=== PATIENT | female | born 1970 | race Caucasian/White ===

== ENCOUNTER 2023-06-12 09:24 | Outpatient (AMB) | payer OTHER, SELFPAY ==
--- NOTE | 2023-06-12 09:27 | A.OFFVIS_ITS ---
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 She has had these for the last few years. Previously seen by [facility] but would like to switch. It seems that she underwent a stress test in 2018. At that time, she exercised for 6 minutes and 38 seconds. 90% of peak predicted heart rate. 8.8 Mets. She had no ischemic changes. With regard to the chest pain itself, random pains. Can happen any time. At that time she holds the chest and after some time it gets better. Nothing clearly exertion. She has a chronic smoker and still smokes. Her brother who was also a smoker had a heart attack and hence there is a concern. Uncertain heart issues in her father. Otherwise, patient states she had sleep apnea but she had some throat surgery not for that apparently sleep apnea got better. She is a diabetic on metformin. Not listed to be hypertensive. On statins. [facility], [facility] Medical History (Updated 06/12/23 @ 10:37 by George Rocha MD) Dyslipidemia Smoker Type 2 diabetes mellitus with unspecified complications Family History (Updated 06/12/23 @ 09:42 by George Rocha MD) Father No problems noted. Mother No problems noted. Brother Myocardial infarction Social History (Updated 06/12/23 @ 09:31 by Jenny Monsalve) Alcohol intake: current Alcohol intake frequency: holidays/special occasions only Patient Tobacco Use Status: Current everyday Tobacco user Tobacco use type: Cigarette Cigarettes Per Day: 12 Review of Systems Const Denies weakness ENT Denies dizziness Card Denies chest pain, Denies chest pain with activity, Denies syncope, Denies rapid heart rate, Denies pedal edema, Denies edema, Denies leg edema, Denies lightheadedness, Denies palpitations, Denies dyspnea, Denies dyspnea on exertion and Denies orthopnea Resp Denies cough, Denies dyspnea and Denies dyspnea on exertion GI Denies hematochezia and Denies change in stool character Musc Denies abnormal gait, Denies muscle cramps, Denies muscle weakness, Denies numbness, Denies radiating pain into limb and Denies tingling Neuro Denies abnormal gait, Denies dizziness, Denies syncope, Denies numbness, Denies tingling and Denies weakness Endo Denies palpitations Physical Exam Vital Signs: Last Vital Signs Pulse 71 06/12/23 09:28 BP 128/80 06/12/23 09:28 BMI result Body Mass Index 37.5 Const General: comfortable and no acute distress Orientation/consciousness: patient oriented x3 HEENT Other: Unremarkable Head: Yes normal to inspection Neck Neck: Yes normal visual inspection Chest Chest palpation & inspection: normal inspection of the chest Resp Auscultation: clear to auscultation bilaterally Cardio Palpation: normal PMI Heart sounds: S1 normal heart sound present, S2 normal heart sound present, no gallops, no murmurs and no rubs GI Palpation (GI): Soft to palpation Back/Spine/Pelvis Other: unremarkable Skin General skin exam: no rashes or lesions noted Neuro General: patient oriented x3 Extrem General: Yes normal to inspection Psych Mental Status: mental status grossly normal Office Procedures EKG Details: EKG shows sinus rhythm at 71/Min; no significant ST-T changes and otherwise unremarkable[place] [id number], Complete Assessment & Plan Assessment & Plan (1) Precordial chest pain: Code(s): R07.2 - Precordial pain (2) Type 2 diabetes mellitus with unspecified complications: Code(s): E11.8 - Type 2 diabetes mellitus with unspecified complications (3) Dyslipidemia: Code(s): E78.5 - Hyperlipidemia, unspecified (4) Smoker: Code(s): F17.200 - Nicotine dependence, unspecified, uncomplicated (5) Family history of myocardial infarction in first degree male relative: Code(s): Z82.49 - Family history of ischemic heart disease and other diseases of the circulatory system Plan Atypical symptoms but multiple risk factors including smoking, dyslipidemia, diabetes, positive history of myocardial infarction her brother. We will get an echocardiogram and coronary CTA for further evaluation. Further plan based on the findings. Orders: Orders CA echo transthoracic complete Today R07.2 - Precordial pain CT Cardiac Coronary Angio Today I25.10 - Atherosclerotic heart disease of [place] coronary artery without angina pectoris Basic Metabolic Panel Today R07.2 - Precordial pain Coding Level of Care Code New Pt Level 4 (48613) Diagnoses Precordial chest pain R07.2 Type 2 diabetes mellitus with unspecified complications E11.8 Dyslipidemia E78.5 Smoker F17.200 Family history of myocardial infarction in first degree male relative Z82.49 CPT Codes EKG - CPT: 47902-[id number], Complete ([id number])
[2023-06-12 09:28] VITALS: BP 128/80; PULSE 71; BMI 37.5
== END 2023-06-12 10:20 | disposition home or self-care (01) ==
PROVIDERS: PCP Nurse Practitioner Adult Health; Referring Provider Nurse Practitioner Adult Health; Visit Provider Internal Medicine
DX: R07.2 Precordial pain (principal); E11.8 Type 2 diabetes mellitus with unspecified complications; E78.5 Hyperlipidemia, unspecified; F17.200 Nicotine dependence, unspecified, uncomplicated; Z82.49 Family history of ischemic heart disease and other diseases of the circulatory system
CPT/HCPCS: 93010; 99204

== ENCOUNTER → 2023-06-12 09:24 | Outpatient (BNVA) | payer OTHER, SELFPAY | PROVIDERS: PCP Nurse Practitioner Adult Health; Referring Provider Nurse Practitioner Adult Health; Visit Provider Internal Medicine | DX: R07.2 Precordial pain (principal); I25.10 Atherosclerotic heart disease of native coronary artery without angina pectoris; I10 Essential (primary) hypertension; E11.9 Type 2 diabetes mellitus without complications; E78.5 Hyperlipidemia, unspecified; F17.210 Nicotine dependence, cigarettes, uncomplicated; Z82.49 Family history of ischemic heart disease and other diseases of the circulatory system; Z79.4 Long term (current) use of insulin | CPT/HCPCS: 93005; 99202 ==

== ENCOUNTER 2023-07-03 09:24 | Outpatient (REF) | payer OTHER, SELFPAY ==
[2023-07-03 11:05] LABS: Anion Gap 12 (12-20); Blood Urea Nitrogen 11 mg/dL (9-16); Calcium 9.9 mg/dL (8.4-10.2); Carbon Dioxide 27 mmol/L (22-29); Chloride 104 mmol/L (96-108); Estimated Glomerular Filt Rate > 60; Glucose Random 165 mg/dL (60-115); Sodium 139 mmol/L (135-145)
== END 2023-07-03 09:25 | disposition home or self-care (01) ==
LOC: HO.LAB 09:24
PROVIDERS: Visit Provider Internal Medicine
DX: R07.2 Precordial pain (principal)
CPT/HCPCS: 36415; 80048

== ENCOUNTER → 2023-07-10 14:53 | Outpatient (REF) | payer OTHER, SELFPAY ==
--- NOTE | 2023-07-10 14:55 | CA_ITS ---
Transthoracic Echocardiogram Patient (Last, First, Middle): Randall Faustin, Gender: Female Date of : 1970 Age: 52 Procedure Date: 07/10/2023 Procedure Type: Transthoracic Echocardiogram Location: OP Height: 160.02 cm Weight: 95.26 kg BSA: 1.97 m2 Heart Rate: bpm BP: 120 / 70 mmHg Dentist Attendant: CAITLIN/JUAN Referring MD: George Rocha MD Industry Consultant: Moises Santo MD Symptoms: R07.2 - Precordial pain Study Quality: Adequate ECG Rhythm: Sinus Conclusions: - Essentially normal study Findings Left Ventricle Normal left ventricular size, thickness, and systolic function. The visually estimated ejection fraction is between 60-65%. Diastolic function is normal for age. Peak GLS is -18.9%, within normal limits. Right Ventricle Normal right ventricular cavity size and systolic function. Atria Both atria are normal in size. Interatrial shunt cannot be excluded. Aortic Valve Normal aortic valve structure and function. There is no aortic valve stenosis. There is no aortic valve regurgitation. Mitral Valve Normal mitral valve structure and function. There is trace mitral valve regurgitation. There is no mitral valve stenosis. Pulmonic Valve The pulmonic valve is likely normal. There is trace pulmonic valve regurgitation. Tricuspid Valve Normal tricuspid valve structure. Tricuspid regurgitation envelope is inadequate for calculation of right ventricular systolic pressure. Normal right atrial pressure. Great Vessels All visible segments of the aorta are normal in size. The pulmonary artery was not well visualized. Venous The inferior vena cava is normal in size and collapses greater than 50% with inspiration. Pericardium/Pleural There is no evidence of pericardial effusion. Prior Study Comparison No prior study available for comparison. Measurements 2D Linear Measurements IVSd: 0.90 0.6-0.9/0.6-1.0 cm LVIDd: 4.80 3.9-5.3/4.2-5.9 cm LVIDd Index: 2.44 2.4-3.2/2.2-3.1 cm/m2 LVIDs: 2.70 2.0-3.6 cm LVPWd: 1.00 0.7-1.1 cm LA Diam: 3.10 2.7-3.8/3.0-4.0 cm LAIDs Index: 1.57 1.5-2.3 cm/m2 LV Mass: 197.78 67-162/88-224 g LV Mass Index: 100.39 43-95/49-115 g/m2 LVOT Diam: 2.10 3.0+(-)1.3 cm 2D Systolic Function EF 4C: 62.30 >55% EF 2C: 59.80 >55% EF BiP: 59.90 >55% Mitral Valve MV Pk E: 0.86 MV PK A: 0.70 MV Decel Time: 260.00 E/A: 1.20 E'Lateral: 9.57 E'Medial: 6.53 E/E' Med: 13.20 E/E' Lat: 9.00 PHT: 76.00 MVA PHT: 2.89 Decel Mellette: 3.32 Aortic Valve AoV Pk Alexei: 1.45 AoV Mn Alexei: 0.96 AoV VTI: 0.29 AoV Pk Grad: 8.00 Aov Mn Grad: 4.00 TILA Cont.VTI: 2.69 LVOT LVOT Pk Alexei: 1.11 LVOT Mn Alexei: 0.73 LVOT VTI: 0.22 LVOT Pk Grad: 5.00 LVOT Mn Grad: 3.00 LVOT Diam: 2.10 LVOT Area: 3.46 Diastolic Function MV Pk E: 0.86 MV Pk A: 0.70 E/A: 1.20 E'Medial: 6.53 E/E' Med: 13.20 E' Laterial: 9.57 E/E' Lat: 9.00 Right Ventricle TAPSE (mm): 18.90 TVS' Alexei: 13.50 Tricuspid Valve RA Press: 8.00 Great Vessels Aorta Sinus of Valsalva: 3.30 2.0-3.[address] [place]: 2.50 1.7-3.4 cm Ao Asc: 3.40 2.1-3.4 cm Ao Arch: 2.30 Updated in Other Vendor System with Status of Final Moises Santo MD electronically signed on 07/10/2023 4:35:21 PM with status of Final
== END ==
LOC: HO.CARD 14:53
PROVIDERS: PCP Nurse Practitioner Adult Health; Visit Provider Internal Medicine
DX: R07.2 Precordial pain (principal)
CPT/HCPCS: 93306; 93356

== ENCOUNTER → 2023-07-10 14:55 | Outpatient (BNV) | payer OTHER, SELFPAY | PROVIDERS: PCP Nurse Practitioner Adult Health; Visit Provider Internal Medicine Cardiovascular Disease | DX: R07.2 Precordial pain (principal) | CPT/HCPCS: 93306 ==

== ENCOUNTER 2023-08-27 09:22 | Outpatient (AMB) | payer OTHER, SELFPAY ==
[2023-08-27 09:30] VITALS: BP 128/72; PULSE 86; BMI 38.1
--- NOTE | 2023-08-27 09:30 | A.OFFVIS_ITS ---
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 She recently underwent an echocardiogram and CTA of the coronary arteries and now presents for follow-up. Today she reports that she does still get a sharp discomfort in her mid chest that can last several minutes before letting up. This can happen randomly. Not brought on by exertion. She does have reflux symptoms as well and she has been taking omeprazole with some improvement. No shortness of breath, palpitations, presyncope, syncope, PND, orthopnea or edema. She reports being active each day and tolerates normal ADLs without difficulty. Takes her meds as directed. Continues to smoke. [facility] Medical History Smoker Dyslipidemia Type 2 diabetes mellitus with unspecified complications Family History Father No problems noted. Mother No problems noted. Brother Myocardial infarction Social History Alcohol intake: current Alcohol intake frequency: holidays/special occasions only Patient Tobacco Use Status: Current everyday Tobacco user Tobacco use type: Cigarette Cigarettes Per Day: 12 Review of Systems Const All systems reviewed & are unremarkable except as noted in HPI and below Card Reports chest pain GI Reports heartburn Physical Exam Vital Signs: Last Vital Signs Pulse 86 08/27/23 09:30 BP 128/72 08/27/23 09:30 BMI result Body Mass Index 38.1 Const General: cooperative, healthy appearing, comfortable and no acute distress Orientation/consciousness: patient oriented x3 Neck Neck: Yes normal visual inspection Resp Effort & Inspection: normal respiratory effort Auscultation: clear to auscultation bilaterally, no crackles, no rales, no rhonchi and no wheezes Cardio Jugular venous distension: no JVD Rate: regular rate Rhythm: regular rhythm Heart sounds: S1 normal heart sound present, S2 normal heart sound present, no murmurs and no rubs Neuro General: patient oriented x3 Extrem General: Yes normal to inspection, No no pedal edema and No calf tenderness Psych Appearance: grossly normal Mental Status: mental status grossly normal Speech and movement: Normal speech and movement present Assessment & Plan Assessment & Plan (1) Precordial chest pain: Code(s): R07.2 - Precordial pain Plan: Atypical sounding nonexertional chest discomfort. Sharp pain in the lower sternum occurring randomly. Exercise stress test done in 2018 with exercise 8.8 Mets, no EKG changes. She was evaluated by Dr. Rocha on last visit. An echocardiogram was done on 07/10/2023 showing normal study, EF 60-65%. A CTA of the coronary arteries was done on 07/27/2023 showing no significant CAD, small hiatal hernia and mild distal esophageal thickening which may represent esophagitis. Patient states that she has been taking omeprazole with some improvement in her GERD symptoms. She has had occasional episodes of the sharp chest discomfort in recent weeks. Review test results with her in detail. Gave her a copy of the CTA report. Recommended GI evaluation and treatment if her symptoms persist. Informed that there is no evidence her symptoms are cardiac related. She does have cardiac risk factors. Reviewed need for good blood sugar, blood pressure and cholesterol control. Signs and symptoms of angina reviewed. Cardiology follow-up as needed. (2) Esophageal thickening: Code(s): K22.89 - Other specified disease of esophagus (3) Type 2 diabetes mellitus with unspecified complications: Code(s): E11.8 - Type 2 diabetes mellitus with unspecified complications Plan: Hemoglobin A1c goal less than 7. Followed by her PCP (4) Dyslipidemia: Code(s): E78.5 - Hyperlipidemia, unspecified Plan: [place] LDL goal less than 70 in patient with diabetes. No recent lipid profile for review. She tells me labs are followed by her PCP. Continue statin therapy. (5) Smoker: Code(s): F17.200 - Nicotine dependence, unspecified, uncomplicated Plan: Benefits of smoking cessation reviewed. Coding Level of Care Code Est Pt Level 3 (77451) Diagnoses Precordial chest pain R07.2 Esophageal thickening K22.89 Type 2 diabetes mellitus with unspecified complications E11.8 Dyslipidemia E78.5 Smoker F17.200 Time Spent (min) 24
== END 2023-08-27 10:04 | disposition home or self-care (01) ==
PROVIDERS: PCP Nurse Practitioner Adult Health; Visit Provider Nurse Practitioner Family
DX: R07.2 Precordial pain (principal); K22.89 Other specified disease of esophagus; E11.8 Type 2 diabetes mellitus with unspecified complications; E78.5 Hyperlipidemia, unspecified; F17.200 Nicotine dependence, unspecified, uncomplicated
CPT/HCPCS: 99213

== ENCOUNTER → 2023-08-27 09:22 | Outpatient (BNVA) | payer OTHER, SELFPAY | PROVIDERS: PCP Nurse Practitioner Adult Health; Visit Provider Nurse Practitioner Family | DX: R07.2 Precordial pain (principal); K22.89 Other specified disease of esophagus; E78.5 Hyperlipidemia, unspecified; E11.8 Type 2 diabetes mellitus with unspecified complications; F17.210 Nicotine dependence, cigarettes, uncomplicated | CPT/HCPCS: 99212 ==

== ENCOUNTER 2023-09-05 10:48 | Outpatient (AMB) | payer OTHER, SELFPAY ==
--- NOTE | 2023-09-05 10:51 | MHC.OFFVIS ---
Intake Vital Signs 09/05/23 10:52 Height 5 ft 3 in Weight 216 lb 0.848 oz BMI 38.3 BP 144/86 H Blood Pressure Location Lt brachial Position Sitting Pulse 81 Intake Visit Reasons: Incidental finding of Esophageal thickening Intake Note: Randall presents in the office as a new patient for incidental findings of esophageal thickening. CC: She states that she gets mucus sometimes but she is surprised because she used to get acid and she takes omeprazole - she stopped for a while and she was feeling good. All of a sudden her acid reflux came back and having chest pains. Allergies No Known Allergies Allergy (Verified 09/05/23 10:55) HPI HPI Comments History of Present Illness Details 52 y.o F with PMH who was referred here for abnormal imaging finding. Pt reports that has been getting cardiac work up done through [facility] for chest pain and pressure which also included a CTA of coronary arteries performed on 07/27/23 that showed clear coronaries but did incidentally roller picker mild distal thickening of the esophagus. Pt does report baseline heartburn sx that have been ongoing on and off for 10 years. Has been treated with intermittent PPIs. Had not needed to take it for almost 6 months since was asymptomatic but when she was told about the esophagitis she resumed it at the dose of 40mg x 2 weeks and now on 20mg once daily. At present, does not report any heartburn, N,V, regurgitation. Smokes 0.5 PPD, etOH use 2-3 times a month. Occ NSAID use PRN for migraines. Up to date on colonoscopy - April 2023 ([facility]): Hyperplastic polyp. [facility] Medical History Smoker Dyslipidemia Type 2 diabetes mellitus with unspecified complications Surgical History Hx of colonoscopy Family History Father No problems noted. Mother No problems noted. Brother Myocardial infarction Social History Alcohol intake: current Alcohol intake frequency: holidays/special occasions only Patient Tobacco Use Status: Current everyday Tobacco user Tobacco use type: Cigarette Cigarettes Per Day: 12 Review of Systems Const All systems reviewed & are unremarkable except as noted in HPI and below Physical Exam Vital Signs: Last Vital Signs Pulse 81 09/05/23 10:52 BP 144/86 H 09/05/23 10:52 BMI result Body Mass Index 38.3 Gen appear: NAD HEENT: nonicteric, no cervical lymphadenopathy Chest: CTA CVS: Regular S1/S2 Abd: soft, nontender, nondistended, bowel sounds + Ext: no peripheral edema Neuro: A/Ox3, noted to move all extremities spontaneously Psych: interacting appropriately Assessment & Plan Assessment & Plan (1) Esophageal thickening: Code(s): K22.89 - Other specified disease of esophagus (2) Smoker: Code(s): F17.200 - Nicotine dependence, unspecified, uncomplicated Plan Reviewed with the pt that most likely secondary to erosive esophagitis given known hx of GERD and ongoing smoking. Will arrange for EGD to r/o infectious esophagitis, malignancy etc. Plan: - Cont omeprazole 20 PO daily - Counseling for smoking cessation - EGD to be booked in 8 weeks for eval Follow up after EGD as needed Coding Level of Care Code New Pt Level 4 (78934) Diagnoses Esophageal thickening K22.89 Smoker F17.200
[2023-09-05 10:52] VITALS: BP 144/86; PULSE 81; BMI 38.3
== END 2023-09-05 13:23 | disposition home or self-care (01) ==
PROVIDERS: PCP Nurse Practitioner Adult Health; Visit Provider Internal Medicine
DX: K22.89 Other specified disease of esophagus (principal); F17.200 Nicotine dependence, unspecified, uncomplicated
CPT/HCPCS: 99204

== ENCOUNTER → 2023-09-05 10:48 | Outpatient (BNVA) | payer OTHER, SELFPAY | PROVIDERS: PCP Nurse Practitioner Adult Health; Visit Provider Internal Medicine | DX: K22.89 Other specified disease of esophagus (principal); F17.210 Nicotine dependence, cigarettes, uncomplicated; Z79.899 Other long term (current) drug therapy | CPT/HCPCS: 99202 ==

== ENCOUNTER 2023-09-12 07:28 | Day surgery (SDC) | payer OTHER, SELFPAY ==
[2023-09-12] VITALS (7 sets, daily range): BP systolic 106–124; BP diastolic 63–78; PULSE 74–83; RESP 9–18; TEMP 36.3–36.8; O2SAT 94–96; BMI 37.7
--- NOTE | 2023-09-12 07:39 | HO.ADDICTPRO ---
Subjective Subjective Reason For Visit: Esophagitis, unspecified without bleeding Diagnostics EKG EKG: reviewed Medications Allergies Allergies Allergy/AdvReac Type Severity Reaction Status Date / Time No Known Allergies Allergy Verified 09/05/23 10:55 Assessment & Plan Total time managing care of this patient today ____ minutes.
--- NOTE | 2023-09-12 07:39 | HO.ANESPROP2 ---
[facility] Active Problems Active Problems: All Active Problems Esophageal thickening (Acute) Family history of myocardial infarction in first degree male relative (Acute) Smoker (Acute) Dyslipidemia (Acute) Type 2 diabetes mellitus with unspecified complications (Acute) Precordial chest pain (Acute) Past Medical History Medical History Smoker Dyslipidemia Type 2 diabetes mellitus with unspecified complications Functional capacity: independent ambulation Family History Family History Father No problems noted. Mother No problems noted. Brother Myocardial infarction Family history of problems with anesthesia: No Surgical History Surgical History Hx of colonoscopy History of Problems with Anesthesia: Yes Social History Social History Alcohol intake: current Alcohol intake frequency: holidays/special occasions only Patient Tobacco Use Status: Current everyday Tobacco user Tobacco use type: Cigarette Cigarettes Per Day: 12 Advance Directives: No Advance Directives Information Provided: Yes Meds Allergies Allergy/AdvReac Type Severity Reaction Status Date / Time No Known Allergies Allergy Verified 09/05/23 10:55 Home Medications Medication Instructions Recorded Confirmed Last Taken Type atorvastatin 80 mg tablet 80 mg PO DAILY 06/12/23 08/27/23 Unknown History fluticasone propionate 50 1 - 2 spray intranasal DAILY PRN 06/12/23 08/27/23 Unknown History mcg/actuation nasal spray,suspension ibuprofen 800 mg tablet 800 mg PO DAILY PRN pain 06/12/23 08/27/23 Unknown History levothyroxine 175 mcg tablet 175 mcg PO DAILY 06/12/23 08/27/23 Unknown History metformin 500 mg tablet 500 mg PO DAILY 06/12/23 08/27/23 Unknown History omeprazole 20 mg capsule,delayed 20 mg PO DAILY 06/12/23 08/27/23 Unknown History release Exam Exam Date and Time: September 12, 202339 Airway Mallampati Class: IV TM Dist: >3cm Neck ROM: Full Denture: Upper Heart: RRR Lungs: CTA Assessment and Plan Assessment Anesthesia Assessment: Anesthesia Plan Discussed Final Anesthetic Review Family History of Problems with Anesthesia: No History of Problems with Anesthesia: Yes NPO: Yes ASA Class: III Final Preanesthetic Review: Meds/Allgs Chart Reviewed, Consent Obtained/Reviewed and Anes Risks/Benef Reviewed Patient Risk: Low Procedure Risk: Low Anesthetic Plan Anesthetic Plan: MAC: Disposition: Standard PACU
[2023-09-12 08:06] LABS: Glucose, Whole Blood 126 mg/dL (60-115)
--- NOTE | 2023-09-12 08:31 | P.CONAN_ITS ---
[facility] Active Problems Active Problems: All Active Problems (Updated 07/31/23 @ 14:07 by Syl Salazar RN) Esophageal thickening (Acute) Family history of myocardial infarction in first degree male relative (Acute) Precordial chest pain (Acute) Smoker (Acute) Dyslipidemia (Acute) Type 2 diabetes mellitus with unspecified complications (Acute) Past Medical History Medical History Smoker Dyslipidemia Type 2 diabetes mellitus with unspecified complications Functional capacity: independent ambulation Family History Family History Father No problems noted. Mother No problems noted. Brother Myocardial infarction Family history of problems with anesthesia: No Surgical History Surgical History (Updated 09/12/23 @ 07:46 by Chuyita Wong RN) History of oral surgery Hx of colonoscopy History of Problems with Anesthesia: Yes Social History Social History Alcohol intake: current Alcohol intake frequency: holidays/special occasions only Patient Tobacco Use Status: Current everyday Tobacco user Tobacco use type: Cigarette Cigarette Packs Per Day: 0.5 Cigarettes Per Day: 10.0 Meds Allergies Allergy/AdvReac Type Severity Reaction Status Date / Time No Known Allergies Allergy Verified 09/05/23 10:55 Home Medications Medication Instructions Recorded Confirmed Last Taken Type atorvastatin 80 mg tablet 80 mg PO DAILY 06/12/23 09/12/23 Unknown History fluticasone propionate 50 1 - 2 spray intranasal DAILY PRN 06/12/23 09/12/23 Unknown History mcg/actuation nasal Allergic Symptoms spray,suspension ibuprofen 800 mg tablet 800 mg PO DAILY PRN pain 06/12/23 09/12/23 Unknown History levothyroxine 175 mcg tablet 175 mcg PO DAILY 06/12/23 09/12/23 Unknown History metformin 500 mg tablet 500 mg PO DAILY 06/12/23 09/12/23 Unknown History omeprazole 20 mg capsule,delayed 20 mg PO DAILY 06/12/23 09/12/23 Unknown History release Exam Exam Date and Time: September 12, 2023 0831 Height,Weight and Vital Signs: Height 5 ft 3 in Weight 96.672 kg Last Vital Signs Temp 97.3 F 09/12/23 07:52 Pulse 74 09/12/23 07:52 Resp 16 09/12/23 07:52 BP 115/74 09/12/23 07:52 Pulse Ox 94 09/12/23 07:52 O2 Del Method Room Air 09/12/23 07:52 Pertinent Lab Results Pertinent Lab Results: Laboratory Tests 09/12/23 08:02 POC Glucose 126 H Assessment and Plan Final Anesthetic Review Family History of Problems with Anesthesia: No History of Problems with Anesthesia: Yes
--- NOTE | 2023-09-12 09:28 | W.PM.OPN ---
Operative Note Operative Note Date of Service: 09/12/23 Narrative: FLEXIBLE TRANSORAL UPPER GASTROINTESTINAL ENDOSCOPY WITH BIOPSIES Pre-op diagnosis: GERD, esophageal wall thickening on chest CT scan Post-op diagnosis: GERD, resoving esophagitis, gastritis, gastric antral nodules Endoscopist:? Diamante Elmore MD Anesthesia:?MAC and converted to GA with ETT (Dr Allen) Consent: Indications for the procedure and potential complications of bleeding, perforation, reaction to medications and missed diagnosis were discussed with the patient and informed consent was obtained. Instrument: Olympus GIF H 190 mid size upper endoscope Monitoring: Vital signs and clinical assessment, continuous EKG monitoring, Pulse oximetry, Carbon Dioxide monitoring and blood pressure monitoring were done throughout the procedure. Procedure: The patient was placed in the left lateral decubitis position and pre-procedure medications were administered and a bite block was placed. The endoscope was inserted into the mouth and advanced under direct vision to the third part of duodenum. The pt became apneic (due to laryngospasm) and the endoscope was removed. Pt was bagged and then ETT was placed. The endoscope was reinserted and a careful inspection was made as the upper endoscope was withdrawn including a retroflexed examination of the proximal stomach; Findings and interventions are described below. Findings: Larynx: ETT in place Esophagus: GE junction at 35 cms. Mild LA Grade A esophagitis with a few superficial 5 mm healing erosions at the GE junction. No Arzola's. Remaining esophageal mucosa appeared normal Stomach: A few 5 to 10 mm benign appearing nodules in the antrum with central erosions - biopsied. Mild gastric erythema. Biopsies were obtained. Grade 2 flap valve on retroflexed examination of the cardia. Duodenum: Normal bulb and descending duodenum Intervention: Biopsies as noted above Impression and Post Procedure Diagnosis: Endoscopy Findings: ESOPHAGUS: Mild LA Grade A esophagitis with a few superficial 5 mm healing erosions at the GE junction. No Arzola's. Remaining esophageal mucosa appeared normal STOMACH: Mild antral gastritis and a few 5 to 10 mm benign appearing nodules in the antrum with central erosions - biopsied. DUODENUM: Normal Plan: I will contact the patient with pathology results Patient to schedule a FU appointment in the GI Clinic with Dr Doss. Above findings were reviewed with the patient and GERD handout was given in the discharge area She was advised to continue Omeprazole 20 mg daily indefinitely
--- NOTE | 2023-09-12 09:29 | MHC.SHP ---
Pre-Procedural Eval Section A Date of Service: 09/12/23 The patient is an INPATIENT: No Changes since office visit: Yes Patient answered all questions; No Cold of Flu in the past 2 weeks, No New Medical Problems and No Changes in Medication The History & Physical has been completed within 30 days and I have reviewed it.: Yes Section B Chief Complaint: Esophagitis, unspecified without bleeding Allergies: Allergies Allergy/AdvReac Type Severity Reaction Status Date / Time No Known Allergies Allergy Verified 09/05/23 10:55 Plan I have reviewed the history and physical and performed a pertinent physical examination on my patient. No changes have occurred unless specified. Time Spent With Patient Time: Total time managing care of this patient today ____ minutes.
--- NOTE | 2023-09-12 10:21 | P.CONAN_ITS ---
[facility] Active Problems Active Problems: All Active Problems (Updated 07/31/23 @ 14:07 by Syl Salazar RN) Esophageal thickening (Acute) Family history of myocardial infarction in first degree male relative (Acute) Precordial chest pain (Acute) Smoker (Acute) Dyslipidemia (Acute) Type 2 diabetes mellitus with unspecified complications (Acute) Past Medical History Medical History Smoker Dyslipidemia Type 2 diabetes mellitus with unspecified complications Functional capacity: independent ambulation Family History Family History Father No problems noted. Mother No problems noted. Brother Myocardial infarction Family history of problems with anesthesia: No Surgical History Surgical History (Updated 09/12/23 @ 07:46 by Chuyita Wong RN) History of oral surgery Hx of colonoscopy History of Problems with Anesthesia: Yes Social History Social History Alcohol intake: current Alcohol intake frequency: holidays/special occasions only Patient Tobacco Use Status: Current everyday Tobacco user Tobacco use type: Cigarette Cigarette Packs Per Day: 0.5 Cigarettes Per Day: 10.0 Use of substances other than those prescribed or required for medical reasons: No Are you DNR?: No Advance Directives: No Advance Directives Information Provided: Yes Meds Allergies Allergy/AdvReac Type Severity Reaction Status Date / Time No Known Allergies Allergy Verified 09/05/23 10:55 Home Medications Medication Instructions Recorded Confirmed Last Taken Type atorvastatin 80 mg tablet 80 mg PO DAILY 06/12/23 09/12/23 Unknown History fluticasone propionate 50 1 - 2 spray intranasal DAILY PRN 06/12/23 09/12/23 Unknown History mcg/actuation nasal Allergic Symptoms spray,suspension ibuprofen 800 mg tablet 800 mg PO DAILY PRN pain 06/12/23 09/12/23 Unknown History levothyroxine 175 mcg tablet 175 mcg PO DAILY 06/12/23 09/12/23 Unknown History metformin 500 mg tablet 500 mg PO DAILY 06/12/23 09/12/23 Unknown History omeprazole 20 mg capsule,delayed 20 mg PO DAILY 06/12/23 09/12/23 Unknown History release Exam Exam Date and Time: September 12, 2023 1021 Height,Weight and Vital Signs: Height 5 ft 3 in Weight 96.672 kg Last Vital Signs Temp 98.3 F 09/12/23 09:47 Pulse 78 09/12/23 10:17 Resp 17 09/12/23 10:17 BP 124/76 09/12/23 10:17 Pulse Ox 95 09/12/23 10:17 O2 Del Method Room Air 09/12/23 10:17 O2 Flow Rate 2 09/12/23 09:57 Pertinent Lab Results Pertinent Lab Results: Laboratory Tests 09/12/23 08:02 POC Glucose 126 H Airway Mallampati Class: III TM Dist: >3cm Neck ROM: Full Denture: Upper Heart: RRR Lungs: CTA Assessment and Plan Assessment Anesthesia Assessment: Anesthesia Plan Discussed and Smoking Cess. Discussed Final Anesthetic Review Family History of Problems with Anesthesia: No History of Problems with Anesthesia: Yes NPO: Yes ASA Class: III Final Preanesthetic Review: Meds/Allgs Chart Reviewed and Consent Obt ained/Reviewed Patient Risk: Low Procedure Risk: Low Anesthetic Plan Anesthetic Plan: MAC: Disposition: Standard PACU
--- NOTE | 2023-09-12 12:36 | HO.POSTANES ---
Post Anesthesia Evaluation Post Anesthesia Evaluation Date of Service: 09/12/23 Vital Signs: Vital Signs Temp Pulse Resp BP Pulse Ox O2 Del Method O2 Flow Rate 09/12/23 10:29 97.8 F 77 18 121/78 96 Room Air 09/12/23 10:17 78 17 124/76 95 Room Air 09/12/23 10:02 77 17 116/73 95 Room Air 09/12/23 09:57 80 17 106/69 96 Nasal Cannula 2 09/12/23 09:52 78 18 107/67 96 Nasal Cannula 2 09/12/23 09:47 98.3 F 83 9 L 116/63 95 Nasal Cannula 2 09/12/23 07:52 97.3 F 74 16 115/74 94 Room Air Anesthesia: General Endotracheal-GETA Mental Status: Awake Pain Control: Satisfactory Nausea/Vomiting: None Hydration: Adequate Anesthesia-Related Issues: No Anes. Related Issues
== END 2023-09-12 10:53 | disposition home or self-care (01) ==
PROVIDERS: PCP Nurse Practitioner Adult Health; Visit Provider Internal Medicine Gastroenterology
PROC: 0DJ08ZZ Inspection of Upper Intestinal Tract, Via Natural or Artificial Opening Endoscopic (ICD-10-PCS; CPT 43235; principal; 2023-09-12 11:00)
DX: K20.90 Esophagitis, unspecified without bleeding (principal); K29.50 Unspecified chronic gastritis without bleeding; K21.9 Gastro-esophageal reflux disease without esophagitis; K31.7 Polyp of stomach and duodenum; E78.5 Hyperlipidemia, unspecified; E11.9 Type 2 diabetes mellitus without complications; R07.2 Precordial pain; Z82.49 Family history of ischemic heart disease and other diseases of the circulatory system; Z79.899 Other long term (current) drug therapy; Z79.1 Long term (current) use of non-steroidal anti-inflammatories (NSAID); F17.210 Nicotine dependence, cigarettes, uncomplicated
CPT/HCPCS: 43239; 82947; 88305; 88342

== ENCOUNTER → 2023-09-12 07:28 | Outpatient (BNV) | payer OTHER, SELFPAY | PROVIDERS: PCP Nurse Practitioner Adult Health; Visit Provider Internal Medicine Gastroenterology | DX: K21.00 Gastro-esophageal reflux disease with esophagitis, without bleeding (principal); K29.70 Gastritis, unspecified, without bleeding; D13.1 Benign neoplasm of stomach | CPT/HCPCS: 43239 ==

== ENCOUNTER 2023-12-03 12:10 | Outpatient (AMB) | payer OTHER, SELFPAY ==
--- NOTE | 2023-12-03 12:19 | MHC.OFFVIS ---
Intake Vital Signs 12/03/23 12:20 Height 5 ft 3 in Weight 221 lb 12.56 oz BMI 39.3 BP 137/70 Blood Pressure Location Rt brachial Position Sitting Pulse 70 Intake Visit Reasons: Gastroesophageal reflux disease (GERD) Intake Note: Patient returns to in office visit today in follow up of GERD. CC: Patient reports having some acid reflux sometimes. She states she is thinking about quitting smoking.Denies having any other GI symptoms or concerns today. 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 Pt does report baseline heartburn sx that have been ongoing on and off for 10 years. Has been treated with intermittent PPIs. Had not needed to take it for almost 6 months since was asymptomatic but when she was told about the esophagitis she resumed it at the dose of 40mg x 2 weeks and now on 20mg once daily. At present, does not report any heartburn, N,V, regurgitation. Smokes 0.5 PPD, etOH use 2-3 times a month. Occ NSAID use PRN for migraines. Up to date on colonoscopy - April 2023 ([facility] [place]): Hyperplastic polyp. 09/12/23: EGD (Dr Elmore) ESOPHAGUS: Mild LA Grade A esophagitis with a few superficial 5 mm healing erosions at the GE junction. No Arzola's. Remaining esophageal mucosa appeared normal STOMACH: Mild antral gastritis and a few 5 to 10 mm benign appearing nodules in the antrum with central erosions - biopsied. DUODENUM: Normal Path: Diagnosis A. Stomach, antrum, biopsy: Antral-type mucosa with moderate chronic inactive inflammation; no Helicobacter organisms seen. B. Stomach, antral nodule, biopsy: Antral-type mucosa with mild chronic inactive inflammation and intestinal metaplasia; negative for dysplasia; no Helicobacter organisms seen. 12/03/23: Here for post-procedure follow up. Has been doing well on omeprazole PO but still taking 40mg since Nov. Continues to smoke at least half a pack a day. Occ etOH use. [facility] Medical History Smoker Dyslipidemia Type 2 diabetes mellitus with unspecified complications Surgical History History of oral surgery Hx of colonoscopy Family History Father No problems noted. Mother No problems noted. Brother Myocardial infarction Social History Alcohol intake: current Alcohol intake frequency: holidays/special occasions only Patient Tobacco Use Status: Current everyday Tobacco user Tobacco use type: Cigarette Cigarette Packs Per Day: 0.5 Cigarettes Per Day: 10.0 Review of Systems Const All systems reviewed & are unremarkable except as noted in HPI and below Physical Exam Vital Signs: Last Vital Signs Pulse 70 12/03/23 12:20 BP 137/70 12/03/23 12:20 BMI result Body Mass Index 39.3 Gen appear: NAD HEENT: nonicteric, no cervical lymphadenopathy Chest: CTA CVS: Regular S1/S2 Abd: soft, nontender, nondistended, bowel sounds + Ext: no peripheral edema Neuro: A/Ox3, noted to move all extremities spontaneously Psych: interacting appropriately Assessment & Plan Assessment & Plan (1) GERD with esophagitis: Code(s): K21.00 - Gastro-esophageal reflux disease with esophagitis, without bleeding Plan Reviewed wiht the pt that will likely need lifelong PPI due to known GERD with esophagitis however can reduce dose to lowest effective dose. Plan: - Reduce omeprazole to 20mg PO once daily and then reduce further to 10mg PO after 8 weeks - Strong counseling for smoking cessation - Avoid large meals or laying down <3 hours after a meal - Weight loss may help with acid reflux (current BMI almost 40) Follow up in 6 months Medications: New omeprazole 20 mg PO DAILY 90 caps 0RF Coding Level of Care Code Est Pt Level 3 (18854) Diagnoses GERD with esophagitis K21.00
[2023-12-03 12:20] VITALS: BP 137/70; PULSE 70; BMI 39.3
== END 2023-12-03 12:44 | disposition home or self-care (01) ==
PROVIDERS: PCP Nurse Practitioner Adult Health; Visit Provider Internal Medicine
DX: K21.00 Gastro-esophageal reflux disease with esophagitis, without bleeding (principal)
CPT/HCPCS: 99213

== ENCOUNTER → 2023-12-03 12:10 | Outpatient (BNVA) | payer OTHER, SELFPAY | PROVIDERS: PCP Nurse Practitioner Adult Health; Visit Provider Internal Medicine | DX: K21.00 Gastro-esophageal reflux disease with esophagitis, without bleeding (principal) | CPT/HCPCS: 99212 ==

== ENCOUNTER → 2024-06-16 11:51 | Outpatient (BNVA) | payer OTHER, SELFPAY | PROVIDERS: PCP Nurse Practitioner Adult Health; Visit Provider Internal Medicine | DX: K21.00 Gastro-esophageal reflux disease with esophagitis, without bleeding (principal); E66.9 Obesity, unspecified; Z68.41 Body mass index [BMI] 40.0-44.9, adult | CPT/HCPCS: 99212 ==

== ENCOUNTER 2024-06-16 13:12 | Outpatient (AMB) | payer OTHER, SELFPAY ==
--- NOTE | 2024-06-16 13:13 | MHC.OFFVIS ---
Vital Signs 06/16/24 13:19 Height 5 ft 3 in Weight 229 lb 4.492 oz BMI 40.6 BP 136/69 Blood Pressure Location Lt brachial Position Sitting Pulse 75 Intake Visit Reasons: Follow up 6 months follow up Intake Note: Randall presents in the office as a follow up 6 month. CC: She states that she just quite smoking. 02/25/24 was the day that she quit smoking. 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 Pt does report baseline heartburn sx that have been ongoing on and off for 10 years. Has been treated with intermittent PPIs. Had not needed to take it for almost 6 months since was asymptomatic but when she was told about the esophagitis she resumed it at the dose of 40mg x 2 weeks and now on 20mg once daily. At present, does not report any heartburn, N,V, regurgitation. Smokes 0.5 PPD, etOH use 2-3 times a month. Occ NSAID use PRN for migraines. Up to date on [place] [place]. 09/12/23: EGD (Dr Elmore) ESOPHAGUS: Mild LA Grade A esophagitis with a few superficial 5 mm healing erosions at the GE junction. No Arzola's. Remaining esophageal mucosa appeared normal STOMACH: Mild antral gastritis and a few 5 to 10 mm benign appearing nodules in the antrum with central erosions - biopsied. DUODENUM: Normal Path: Diagnosis A. Stomach, antrum, biopsy: Antral-type mucosa with moderate chronic inactive inflammation; no Helicobacter organisms seen. B. Stomach, antral nodule, biopsy: Antral-type mucosa with mild chronic inactive inflammation and intestinal metaplasia; negative for dysplasia; no Helicobacter organisms seen. 12/03/23: Here for post-procedure follow up. Has been doing well on omeprazole PO but still taking 40mg since Sep. Continues to smoke at least half a pack a day. Occ etOH use. 06/16/24: Here for follow up. Quit smoking 02/24! No acute GI issues. Had cut back on omeprazole to 20 with continued control of sx. ON LICENSE OF [facility] Medical History Smoker Dyslipidemia Type 2 diabetes mellitus with unspecified complications Surgical History History of esophagogastroduodenoscopy (EGD) History of oral surgery Hx of colonoscopy Family History Father No problems noted. Mother No problems noted. Brother Myocardial infarction Social History Alcohol intake: current Alcohol intake frequency: holidays/special occasions only Patient Tobacco Use Status: Current everyday Tobacco user Tobacco use type: Cigarette Cigarette Packs Per Day: 0.5 Cigarettes Per Day: 10.0 Physical Exam Vital Signs: Last Vital Signs Pulse 75 06/16/24 13:19 BP 136/69 06/16/24 13:19 BMI result Body Mass Index 40.6 No apparent distress With obesity Nonicteric Abdomen soft, nondistended Alert and oriented x3, normal gait Assessment & Plan Assessment & Plan (1) GERD with esophagitis: Code(s): K21.00 - Gastro-esophageal reflux disease with esophagitis, without bleeding Category: Medical (2) Obesity (BMI 35.0-39.9 without comorbidity): Code(s): E66.9 - Obesity, unspecified Category: Medical Plan Reviewed wiht the pt that will likely need lifelong PPI due to known GERD with esophagitis however can reduce dose to lowest effective dose. Plan: - Reduce omeprazole to 10mg PO once daily - Avoid large meals or laying down <3 hours after a meal - Weight loss may help with acid reflux (current BMI 40 and has gained 10 lbs since she was last seen). Bariatric med referral requested. Follow up in 1 year Orders: Referrals Bariatric Surgery Referral E66.9 - Obesity, unspecified Medications: New omeprazole 10 mg PO DAILY 90 caps 2RF Discontinued omeprazole Discontinued Reason: Doctor's Order 20 mg PO DAILY 90 caps 0RF Coding Level of Care Code Est Pt Level 4 (53650) Diagnoses GERD with esophagitis K21.00 Obesity (BMI 35.0-39.9 without comorbidity) E66.9
[2024-06-16 13:19] VITALS: BP 136/69; PULSE 75; BMI 40.6
== END 2024-06-16 13:55 | disposition home or self-care (01) ==
PROVIDERS: PCP Nurse Practitioner Adult Health; Visit Provider Internal Medicine
DX: K21.00 Gastro-esophageal reflux disease with esophagitis, without bleeding (principal); E66.9 Obesity, unspecified
CPT/HCPCS: 99214

== ENCOUNTER 2025-01-06 08:11 | Outpatient (AMB) | payer OTHER, SELFPAY ==
--- NOTE | 2025-01-06 08:17 | A.OFFVIS_ITS ---
Vital Signs 01/06/25 08:18 Height 5 ft 3 in Weight 229 lb 11.547 oz BMI 40.7 BP 130/80 Blood Pressure Location Rt brachial Pulse 73 Intake Visit Reasons: overdue follow up Allergies No Known Allergies Allergy (Verified 06/16/24 13:20) Medication List - Last Reconciled 01/06/25 by George Rocha MD albuterol sulfate 90 mcg/actuation (Ventolin HFA) inhalation atorvastatin 80 mg PO DAILY celecoxib 200 mg PO DAILY fluticasone propionate 50 mcg/actuation 1 - 2 sprays intranasal DAILY PRN ibuprofen 800 mg PO DAILY PRN levothyroxine 175 mcg PO DAILY metformin 500 mg PO DAILY norethindrone acetate 5 mg PO DAILY omeprazole 10 mg PO DAILY HPI Comments Details: Randall returns for follow-up. In the past, she was seen regarding chest pains. Atypical pains that were happening randomly. For this reason, she underwent an echocardiogram and coronary CTA and they were unremarkable. She was a smoker in the past but she has not smoked in the last year. After that, it seems that the pain disappeared completely. In the coronary CTA, there was also suggestion of lower esophageal thickening and she was referred to GI for that. She underwent endoscopy and then told to have reflux. Overall, she states she feels quite good. No new cardiac complaints. No chest pains. Still overweight. On metformin for diabetes. On statins. [facility] Medical History Smoker Dyslipidemia Type 2 diabetes mellitus with unspecified complications Surgical History History of esophagogastroduodenoscopy (EGD) History of oral surgery Hx of colonoscopy Family History Father No problems noted. Mother No problems noted. Brother Myocardial infarction Social History (Updated 01/06/25 @ 08:19 by Juliette Murray CMA) Alcohol intake: current Alcohol intake frequency: holidays/special occasions only Patient Tobacco Use Status: Former Tobacco user Tobacco use type: Cigarette Cigarette Packs Per Day: 0.5 Cigarettes Per Day: 10.0 Review of Systems Const Denies chills, Denies fatigue, Denies fever(s), Denies weight gain and Denies weight loss ENT Denies dizziness Card Denies chest pain, Denies leg edema, Denies lightheadedness, Denies palpitations, Reports dyspnea on exertion, Denies orthopnea and Denies other Resp Denies cough and Reports dyspnea on exertion GI Denies hematochezia and Denies change in stool character Musc Denies abnormal gait, Denies muscle weakness, Denies numbness, Denies radiating pain into limb and Denies tingling Neuro Denies abnormal gait, Denies dizziness, Denies numbness and Denies tingling Endo Denies fatigue and Denies palpitations Physical Exam Vital Signs: Last Vital Signs Pulse 73 01/06/25 08:18 BP 130/80 01/06/25 08:18 BMI result Body Mass Index 40.7 Const General: comfortable and no acute distress Orientation/consciousness: patient oriented x3 HEENT Other: Unremarkable Head: Yes normal to inspection Neck Neck: Yes normal visual inspection Chest Chest palpation & inspection: normal inspection of the chest Resp Auscultation: clear to auscultation bilaterally Cardio Palpation: normal PMI Heart sounds: S1 normal heart sound present, S2 normal heart sound present, no gallops, no murmurs and no rubs GI Palpation (GI): Soft to palpation Back/Spine/Pelvis Other: unremarkable Skin General skin exam: no rashes or lesions noted Neuro General: patient oriented x3 Extrem General: Yes normal to inspection Psych Mental Status: mental status grossly normal Office Procedures EKG Details: EKG with underlying sinus rhythm at 73/Min; no significant ST-T changes and otherwise unremarkable. [place]. [id number], Complete Assessment & Plan Assessment & Plan (1) Precordial chest pain: Code(s): R07.2 - Precordial pain Category: Medical (2) Ex-smoker: Code(s): Z87.891 - Personal history of nicotine dependence Category: Social Hx (3) Morbid obesity: Code(s): E66.01 - Morbid (severe) obesity due to excess calories Category: Medical Plan Coronary CTA from 2022-no coronary artery calcification; no significant CAD. Mild distal esophageal thickening from possible esophagitis. Chest CT scan from 2023-normal heart size, no pericardial effusion, no coronary calcification; no aortic aneurysm. Echocardiogram 2022-LVEF 60-65%. Normal peak global longitudinal strain. Otherwise unremarkable. Chest pain episodes are noncardiac in nature and possibly related to reflux. Any case, they resolved now and she no longer has those. Mainly risk factor modification. Must lose weight and we discussed that today. She has not smoked in almost a year and she will keep it that way. Otherwise, contact us with any concerns. Coding Level of Care Code Est Pt Level 3 (74828) Diagnoses Precordial chest pain R07.2 Ex-smoker Z87.891 Morbid obesity E66.01 CPT Codes EKG - CPT: 32288-[id number], Complete ([id number])
[2025-01-06 08:18] VITALS: BP 130/80; PULSE 73; BMI 40.7
--- OUTSIDE RECORDS SUMMARY | 2025-01-06 08:29 | XMS_ITS | Data Portability ---
Author Organization MD - [facility], [facility] Address [address] [place] [address] Care Team Providers Care Electrical Project Manager Name Role Phone ROVERTO HARRINGTON Primary Care Provider Assessment Encounter Date Assessment Date Assessment LastModified by Organization Details LastModified Time 02/07/2024 02/07/2024 I am seeing the patient today under the supervision of Dr. Berry who was available but did not see the patient. HPI: Patient is a pleasant 52-year-old female presents to the clinic today for reevaluation in regards to left ankle pain. She is previously been diagnosed with ankle arthritis in the past. She states it has been going on for at least the last year and a half to 2 years without acute inciting event however the pain has just gotten worse.. Previously saw myself and received a cortisone injection back on 11/14/2023. Patient states her injection lasted about 2-1/2 months. She states it is always her to come back and pain and presents today per her request for another cortisone injection. She denies any previous injuries or surgeries to her ankle. Denies numbness and tingling. Otherwise has medication for her thyroid, hyperlipidemia and diabetes without most recent A1c or her fasting blood sugar. States her sugars run around 100. She tells me that she is going on a cruise in May. Past family, medical, social history and review of systems has been reviewed, updated and signed by me and is located in the patient's chart. Examination: The patient is well appearing and in no apparent distress. Alert and oriented x3. Gait is symmetric. Left lower extremity exam: Skin is intact without evidence of erythema edema or ecchymosis noted. Evidence of slight flattening of the ankle compared to the contralateral side. Patient is minimally tender palpation about the tibiotalar tibiofibular joint. Patient is also tender palpation about the subtalar joint. There is evidence of crepitus with range of motion. Full range of motion of the ankle with evidence or discomfort within ranges. Strength is 5/5 in comparison to the contralateral side. Neurovascular intact distally. Capillary refills less than 3 seconds. X-rays ordered, obtained and reviewed at [facility]: Previous images demonstrate no evidence of obvious fracture or dislocation noted. There is evidence of significant degenerative change to the tibiotalar and talofibular joint. There is evidence of osteophytic formation and joint space narrowing noted as well as os trigonum with loss of Laura height noted. Impression: Left ankle arthritis / subtalar arthritis Plan: I discussed my findings with the patient today. We discussed potential treatment options at this time. She is offered anti-inflammatori es which he is unable to take, creams, braces which you like to avoid. We discussed the role of cortisone. She seems interested in this. We discussed the risks and benefits to include bleeding, tachycardia, facial flushing, fat atrophy, hyperpigmentation , hyperglycemia. Patient states she understands this.Patient would like to proceed cortisone injection today. See procedure note We held off on x-rays today. We will order radiographs of her ankle to assess changed since her initiation of cortisone injections at her next visit. She understands this.. Scheduled her follow-up in 3 months for another injection if needed. Speech recognition clinic coordinator software was used to create portions of this document. An attempt at proofreading has been made to minimize errors. Please call for corrections. [email or web address] Not available 02/07/2024 11:04:21 05/20/2024 05/20/2024 I am seeing the patient today under the supervision of Dr. Berry who was available but did not see the patient. Clinical update: Patient presents to clinic today for evaluation. She was previously diagnosed with ankle arthritis in the past. She been undergoing cortisone injections. She states that cortisone injections are working less and less. She presents today for repeat injection, radiographic imaging. She is scheduled to go on a cruise in the next couple weeks. HPI: Patient is a pleasant 52-year-old female presents to the clinic today for reevaluation in regards to left ankle pain. She is previously been diagnosed with ankle arthritis in the past. She states it has been going on for at least the last year and a half to 2 years without acute inciting event however the pain has just gotten worse.. Previously saw myself and received a cortisone injection back on 11/14/2023. Patient states her injection lasted about 2-1/2 months. She states it is always her to come back and pain and presents today per her request for another cortisone injection. She denies any previous injuries or surgeries to her ankle. Denies numbness and tingling. Otherwise has medication for her thyroid, hyperlipidemia and diabetes without most recent A1c or her fasting blood sugar. States her sugars run around 100. She tells me that she is going on a cruise in May. Past family, medical, social history and review of systems has been reviewed, updated and signed by me and is located in the patient's chart. Examination: The patient is well appearing and in no apparent distress. Alert and oriented x3. Gait is symmetric. Left lower extremity exam: Skin is intact without evidence of erythema edema or ecchymosis noted. Evidence of slight flattening of the ankle compared to the contralateral side. Patient is minimally tender palpation about the tibiotalar tibiofibular joint. Patient is also tender palpation about the subtalar joint. There is evidence of crepitus with range of motion. Full range of motion of the ankle with evidence or discomfort within ranges. Strength is 5/5 in comparison to the contralateral side. Neurovascular intact distally. Capillary refills less than 3 seconds. X-rays ordered, obtained and reviewed at [facility]: 3 views of the ankle were ordered, obtained, reviewed independently by myself today. They demonstrate worsening degenerative change and osteophytic formation noted to the tibiotalar joint.. Impression: Left ankle arthritis / subtalar arthritis Plan: I discussed my findings with the patient today. We discussed potential treatment options at this time. She is given a prescription for Celebrex to utilize as needed. She is educated about arthritis and did was offered potential referral to one of our foot surgeons to discuss surgical intervention associated with arthritis however she would like to hold off. She will follow-up in the next 3 months. She would like to undergo cortisone injection. We discussed the risk and benefits. See procedure note. She is reminded to call the office for reevaluation sooner if her cortisone injection does not work. All questions and concerns were answered and addressed. .. Scheduled her follow-up in 3 months for another injection if needed. Speech recognition clinic coordinator software was used to create portions of this document. An attempt at proofreading has been made to minimize errors. Please call for corrections. [email or web address] Not available 05/20/2024 10:14:10 08/19/2024 08/19/2024 I am seeing the patient today under the supervision of Dr. Berry who was available but did not see the patient. Clinical update: Patient presents to clinic today for evaluation. She was previously diagnosed with ankle arthritis in the past. She been undergoing cortisone injections. She states that cortisone injections are working less and less. She presents today for repeat injection, A1c went up upon her previous visit with her PCP to around 7, her DM meds were adjusted Past family, medical, social history and review of systems has been reviewed, updated and signed by me and is located in the patient's chart. Examination: The patient is well appearing and in no apparent distress. Alert and oriented x3. Gait is symmetric. Left lower extremity exam: Skin is intact without evidence of erythema edema or ecchymosis noted. Evidence of slight flattening of the ankle compared to the contralateral side. Patient is minimally tender palpation about the tibiotalar tibiofibular joint. Patient is also tender palpation about the subtalar joint. There is evidence of crepitus with range of motion. Full range of motion of the ankle with evidence or discomfort within ranges. Strength is 5/5 in comparison to the contralateral side. Neurovascular intact distally. Capillary refills less than 3 seconds. X-rays ordered, obtained and reviewed at [facility]: none performed today, previous demonstrate worsening degenerative change and osteophytic formation noted to the tibiotalar joint.. Impression: Left ankle arthritis / subtalar arthritis Plan: I discussed my findings with the patient today. We discussed potential treatment options at this time. . She is educated about arthritis and did was offered potential referral to one of our foot surgeons to discuss surgical intervention associated with arthritis however she would like to hold off. Did discuss the importnace of glycemic control which she understands. She will follow-up in the next 3 months. She would like to undergo cortisone injection. We discussed the risk and benefits. See procedure note. She is reminded to call the office for reevaluation sooner if her cortisone injection does not work. All questions and concerns were answered and addressed. .. Scheduled her follow-up in 3 months for another injection if needed. Speech recognition clinic coordinator software was used to create portions of this document. An attempt at proofreading has been made to minimize errors. Please call for corrections. [email or web address] Not available 08/19/2024 11:13:18 Plan of Treatment Reminders Order Date Submit Date Provider Last Modified By Organization Details Last Modified Time Details Appointments RECHEC K 15 2024 10:15A M Mayi Mantilla PA-C Not available Not available Not available Lab None record ed. Referral None record ed. Procedures None record ed. Surgeries None record ed. Imaging XR, ankle, 3 or more view - rechec k pt 3 views left ankle wb rm 112 2023 024 [email or web address], [address], [facility] [address], [place], [address], 06/16/2024 14:51:20 Medication Orders meloxi cam 15 mg tablet 2024 025 [email or web address] [id number], [address] [place] [address], [id number], 11/19/2024 11:03:00 Celebr ex 200 mg capsul e [address] [facility]127, [address], [place], [phone], 05/20/2024 11:59:46 Voltar en 1 % topica l gel [address] [id number], [address], [place], [phone], 02/07/2024 11:04:39 Patient TargetsNo targets recorded. Patient InstructionsNo instructions recorded. Reason for Referral None Reported. Results Created Date Observation Date Name Description Value Unit Range Abnormal Flag Note LastModifiedBy Organization Detail LastModifiedTime 05/20/20 24 05/20/2024 XR, ankle , 3 or more view [email or web address] ?Encry pted=s hAaTro YD8dLq bEUv6g %2BXZw aYqtaq 0bqfl% 2Fg9IQ a4ajBk vP9nXo QUaueC m3YtLR FvZlgJ JJ8mAn HZtai3 0z4232 AC0Kpb X2BWKT eUC8mr 84%3D INTERFACE [facility] [address], [place], [address], 05/20/2024 09:54:29 05/20/20 24 05/20/2024 XR, ankle , 3 or more view [email or web address] ?Encry pted=s hAaTro YD8dLq bEUv6g %2BXZw aYqtaq 0bqfl% 2Fg9IQ a4ajBk vP9nXo QUaueC m3YtLR FvZlgJ JJ8mAn HZtai3 8e9233 AC0Kpb X2BWKT eUC8mr 84%3D INTERFACE [facility] [address], [place], [address], 05/20/2024 09:54:31 Result Notes None recorded. Procedures Surgical History Date Name Laterality Status Provider Name and Address Organization Details Recorded Time 5 Ankle Joint Asp & Inj, L/R Celestone 2cc completed Mayi Mantilla PA-C [address], [place], [address], [facility] 11/19/2024 11:10:10 4 Ankle Joint Asp & Inj, L/R Celestone 2cc completed Rochelle Abel PA-C [address], [place], [address], [facility] 08/19/2024 11:13:46 4 Ankle Joint Asp & Inj, L/R Celestone 2cc completed Rochelle Abel PA-C [address], [place], [address], [facility] 05/20/2024 10:14:33 4 Ankle Joint Asp & Inj, L/R Celestone 2cc completed Rochelle Abel PA-C [address], [place], [address], [facility] 02/27/2024 12:17:26 Imaging Results Imaging Date Name Status LastModified by Organiz ation Details LastModified Time 05/20/2024 XR, ankle, 3 or more view completed INTERFACE [email or web address] [address], [place], [address], 05/20/2024 09:54:29 05/20/2024 XR, ankle, 3 or more view completed INTERFACE [email or web address] [address], [place], [address], 05/20/2024 09:54:31 Procedure Notes None recorded. Medical Equipment None Reported. Allergies Allergen ID Allergen Name Allergen Category Reaction Reaction Severity Criticality Documentation Date Start Date Code Code System Note Provider Name and Address Organization Details Recorded Time 246106 Tree nut (substanc e) food,medi cation Not available Not available Not available 01/07/20242022 66720 48874 96272 SNOMED Not Available [facility] 15:26:05 Medications Name Sig Start Date Stop Date Status Note LastModified by Organization Details LastModified Time celecoxib 200 mg capsule TAKE 1 CAPSULE BY MOUTH EVERY DAY active Not Available Not Available No t Available metformin 500 mg tablet TAKE 1 TABLET BY MOUTH TWICE DAILY WITH MEALS active Not Available Not Available No t Available levothyroxine 175 mcg tablet TAKE 1 TABLET BY MOUTH DAILY active Not Available Not Available No t Available atorvastatin 80 mg tablet TAKE 1 TABLET BY MOUTH DAILY active Not Available Not Available No t Available ibuprofen 800 mg tablet TAKE 1 TABLET BY MOUTH DAILY NEEDED FOR PAIN active Not Available Not Available No t Available Nystop 100,000 unit/gram topical powder APPLY TOPICALLY TWICE DAILY. APPLY BENEATH BILATERAL BREASTS active Not Available Not Available No t Available meloxicam 15 mg tablet TAKE 1 TABLET BY MOUTH EVERY DAY WITH MEALS active Not Available Not Available N ot Available omeprazole 10 mg capsule,delay ed release TAKE 1 CAPSULE BY MOUTH DAILY active Not Available Not Available No t Available omeprazole 20 mg capsule,delay ed release TAKE 1 CAPSULE BY MOUTH DAILY OV 08-21-22 active Not Available Not Available No t Available norethindrone acetate 5 mg tablet TAKE 1 TABLET BY MOUTH DAILY active Not Available Not Available No t Available epinephrine 0.3 mg/0.3 mL injection, auto-injector active Not Available Not Availabl e Not Available Ventolin HFA 90 mcg/actuation aerosol inhaler INHALE 1 PUFFS BY MOUTH FOUR TIMES DAILY NEEDED FOR WHEEZING active Not Available Not Available No t Available nitrofurantoi n monohydrate/m acrocrystals 100 mg capsule TAKE 1 CAPSULE BY MOUTH TWICE DAILY FOR 7 DAYS active Not Available Not Available No t Available diclofenac 1 % topical gel APPLY 2 GRAMS TOPICALLY TO THE AFFECTED AREA FOUR TIMES DAILY active Not Available Not Available No t Available BinaxNOW COVID-19 Ag Self Test kit TEST DIRECTED TODAY active Not Available Not Available No t Available Vitals Date Recorded Body height Body mass index (BMI) Body weight Provider Name and Address Organization Details Last Updated DateTime 02/07/2024 160.02 cm 39.3 kg/m2 961444.51 g HANANE JANE [facility] 02/07/2024 10:08:17 Date Recorded Body height Body mass index (BMI) Body weight Provider Name and Address Organization Details Last Updated DateTime 05/20/2024 160.02 cm 39.3 kg/m2 265525.51 g Sarah Roberson [facility] 05/20/2024 09:46:54 Date Recorded Body height Body mass index (BMI) Body weight Provider Name and Address Organization Details Last Updated DateTime 08/19/2024 160.02 cm 36.3 kg/m2 82230.44 g KATHRYN STUBBS [facility] 08/19/2024 10:11:46 Date Recorded Body height Body mass index (BMI) Body weight Provider Name and Address Organization Details Last Updated DateTime 11/19/2024 160.02 cm 36.3 kg/m2 92311.44 g KWAN ENGEL [facility] 11/19/2024 10:29:28 Social History None recorded. Functional Status None recorded. Mental Status None recorded. Family History Nothing Reported. Medical History No medical history recorded. Gynecological HistoryNo gynecological history recorded. Obstetrics History GPAL:G 0 P 0 0 0 0 Past Encounters Encounter ID Performer Location Encounter Start Date Encounter Closed Date Diagnosis/Indication Diagnosis SNOMED-CT Code Diagnosis ICD10 Code Diagnosis Note [id number] Rochelle Abel PA-C [facility] [address] [place] [address] 02/07/2024 09:53:48 02/27/2024 16:14:18 Pain of left ankle joint 8415377576 [id number] M25.813 [id number] Rochelle Abel PA-C [facility] [address] [place] [address] 05/20/2024 09:38:09 06/16/2024 14:51:20 Pain of left ankle joint 8429304874 [id number] M25.572 You have been provided with a cortisone injection in order to reduce the pain and inflammati on that you are experienci ng. The injection consists of two medication s. Cortisone (an anti-infla mmatory that will take 48-72 hours to take effect) and Lidocaine (a numbing agent that will last 2-3 hours). Please note that not everyone will have a lasting response following the injection. PATIENT INSTRUCTIO NSOnce the Lidocaine wears off, you may have an increase in your pain. I recommend icing the affected area for 20 minutes 3-4 times per day.It is recommende d that you refrain from any high level activities using the joint or limb that was injected for approximat max 24-48 hours. Normal day-to-day activities are generally not a problem.PO SSIBLE SIDE EFFECTSInd ividuals with dark complexion s may experience some skin discolorat ion locally at the site of the injection. There is the possibilit y of an increase in discomfort within 48 hours following the injection. This is called a ? f lare? . To help minimize the chances of this, please see the post-injec tion instructio ns above.Ther e is a less than 1% chance of an infection. If you notice any signs of infection (redness, warmth, drainage, fever greater than 100 degrees) please call our office or contact us through the portal [facility]. [id number] KELVIN Watson [address] [place] [address] 08/19/2024 09:58:51 09/10/2024 15:42:04 Pain of left ankle joint 9746854263 [id number] M25.572 You have been provided with a cortisone injection in order to reduce the pain and inflammati on that you are experienci ng. The injection consists of two medication s. Cortisone (an anti-infla mmatory that will take 48-72 hours to take effect) and Lidocaine (a numbing agent that will last 2-3 hours). Please note that not everyone will have a lasting response following the injection. PATIENT INSTRUCTIO NSOnce the Lidocaine wears off, you may have an increase in your pain. I recommend icing the affected area for 20 minutes 3-4 times per day.It is recommende d that you refrain from any high level activities using the joint or limb that was injected for approximat max 24-48 hours. Normal day-to-day activities are generally not a problem.PO SSIBLE SIDE EFFECTSInd ividuals with dark complexion s may experience some skin discolorat ion locally at the site of the injection. There is the possibilit y of an increase in discomfort within 48 hours following the injection. This is called a ? f lare? . To help minimize the chances of this, please see the post-injec tion instructio ns above.Ther e is a less than 1% chance of an infection. If you notice any signs of infection (redness, warmth, drainage, fever greater than 100 degrees) please call our office or contact us through the portal [facility]. [id number] KELVIN [facility] [address] [place] [address] 11/19/2024 10:10:16 12/01/2024 10:19:56 Arthritis of left ankle 6626116316 [id number] M19.072 Health Concerns Section Related Observation LastModified by Organization Detai ls LastModified Time None Recorded Concern Status LastModified by Organization Details LastModified Time None Recorded Advance Directives Directive None Recorded Payers Encounter Date Sequence Insurance Name Policy Number Policy Acosta Covered Member ID Acosta Member ID Guarantor Name 02/07/2024 1 [facility] [id number] Randall Ramin [id number] Randall Ramin 05/20/2024 1 [facility] [id number] Randall Ramin [id number] Randall Ramin 08/19/2024 1 [facility] [id number] Randall Ramin [id number] Randall Ramin 11/19/2024 1 [facility] [id number] Randall Ramin [id number] Randall Ramin Notes Date Note Type Note Provider Name and Address Organization Details Recorded Time 11/19/2024 text/html I am seeing this patient under the supervision of Dr. Berry, who was available but who did not see the patient. HPI: Patient is a 53-year-old female presenting today for re-check in regards to left ankle arthritis. She was last seen here by Rochelle Abel on 08/19/2024. Given a cortisone injection into her left ankle. Tolerated this well. Presents today for recheck. Requesting repeat cortisone injection. States that the injections helped for about 2 months. Continues to have pain about the anterior aspect of the ankle. Her blood sugars have been well-maintained and she tells me that her last A1c was 6.7. Denies any interval trauma. Denies any fevers, chills, or paresthesias. PFMSH, Meds and ROS reviewed, updated and signed by me, and is located in the patient's chart.PHYSICAL EXAMINATION: The patient is well appearing and in no apparent distress. Alert and oriented x 3. Examination of her left ankle reveals mild edema about the anterolateral and lateral aspect of the ankle with no evidence of erythema or warmth. She is tender to palpation over the anterior ankle joint and anterolateral ankle. Nontender to palpation elsewhere about the foot or ankle. Ankle motion is limited in the sagittal plane. Tolerates hindfoot inversion and eversion without much discomfort. Calf soft, nontender. Sensation intact light touch in the left lower extremity. IMPRESSION: Left ankle arthritis PLAN: Discussed the findings and situation with the patient today. We discussed the role of repeat cortisone injection. Discussed injections 2-3 times a year as needed for pain. Discussed the role of total ankle arthroplasty. Patient would like to hold off on surgery for now. She was given prescriptions for meloxicam and for an ankle brace. Cortisone injection given today. Follow-up in 3 months. Call with questions or concerns. The patient is ambulatory, but has weakness and/or instability of their extremity which requires stabilization from this semi-rigid/rigid orthosis to improve their function. Verbal and written instructions for the use and application of this item were given. Patient was instructed that should the brace result in increased pain, decreased sensation, increased swelling or an overall worsening of their medical condition, to please contact our office immediately. Mayi Mantilla PA-C [address] [place], [place] [address] [address], [place], [address], [facility] 11/19/2024 11:10:30 OBGyn Episode No OBEpisode recorded.
--- OUTSIDE RECORDS SUMMARY | 2025-01-06 08:29 | XMS_ITS | Continuity of Care Document ---
Author Organization [facility] Address [address] [place] [address]- Care Team Providers Care Wet Room Worker Name Role Phone Mary PERSONNEL ARBITRATOR, Urszula Varner Primary Care Physician [phone] Encounter [facility] NBR [id number] Date(s): 08/16/24 - 12/14/[address] [address] Attending Physician: Babak Perez MD Encounter Type: Pre-OutPatient One Time Allergies, Adverse Reactions, Alerts Substance Criticality Severity Reaction Reaction Severity Status Nuts Not available Active Immunizations Given and Recorded Vaccine Date Status Refusal Reason zoster vaccine, inactivated 11/01/24 Recorded zoster vaccine, inactivated 08/21/24 Recorded tetanus/diphtheria/pertussis, acel(Tdap) 08/14/24 Given tetanus/diphtheria/pertussis, acel(Tdap) 04/17/13 Recorded influenza virus vaccine, inactivated 08/21/22 Give n influenza virus vaccine, inactivated 09/22/21 Give n influenza virus vaccine, inactivated 12/10/18 Give n influenza virus vaccine, inactivated 08/22/17 Give n influenza virus vaccine, inactivated 08/24/13 Raji rded SARS-CoV-2 (COVID-19) mRNA BNT-162b2 vac 11/16/21 Recorded SARS-CoV-2 (COVID-19) mRNA BNT-162b2 vac 03/24/21 Recorded SARS-CoV-2 (COVID-19) mRNA BNT-162b2 vac 03/03/21 Recorded Medications albuterol CFC free 90 mcg/inh inhalation aerosol 1, puffs, Inhalation, 4 times a day, PRN, # 9 Gm, Refills 2, Tot. Refills 2, Maintenance, 01/23/24 8:09:00 AM EDT, Aerosol, Route to Pharmacy Electronically, [id number], [facility] #[id number], 160, cm, 01/23/24 7:32:00 EDT, Height, 95, kg, 07/27/23 8:09:00 EDT, Dry Weight Start Date: 01/23/24 Status: Ordered Quantity: 9.0 Unit: g Repeat number: 3 Alcohol Pads See Instructions, # 200 each, Refills 5, Tot. Refills 5, Maintenance, Check blood sugar daily Dx: E11.9, 06/17/21 5:00:00 PM EDT, Supply, 160, cm, 06/17/21 15:02:00 EDT, Height Start Date: 06/17/21 Stop Date: 12/14/21 Status: Ordered Quantity: 200.0 Unit: each Repeat number: 6 atorvastatin 80 mg oral tablet 1 tablet, By Mouth, Daily, # 90 tablet, 3 Refills, Maintenance, 01/23/24 8:09:00 AM EDT, [facility] #[id number], 160, cm, 01/23/24 7:32:00 EDT, Height, 95, kg, 07/27/23 8:09:00 EDT, Dry Weight Start Date: 01/23/24 Status: Ordered Quantity: 90.0 Unit: tablet Repeat number: 4 Aygestin 5 mg oral tablet 1 tablet = 5 mg, By Mouth, Daily, # 90 tablet, 0 Refills, Maintenance, 04/04/24 10:53:00 AM EDT, Tablet, [facility] #[id number], Partial fill upon patient request if the prescription is for a schedule II opioid drug., 160, cm, 04/04/24 10:47:00 EDT, Height, 104.7, kg, 03/21/24 9:10:00 EDT, Dry Weight Start Date: 04/04/24 Stop Date: 07/03/24 Status: Ordered Quantity: 90.0 Unit: tablet Repeat number: 1 CeleBREX 200 mg oral capsule 1 capsule = 200 mg, By Mouth, Daily, PRN Pain , Moderate, # 30 capsule, 0 Refills, Maintenance, 01/23/24 8:15:00 AM EDT, Capsule, [facility] #[id number], Partial fill upon patient request if the prescription is for a schedule II opioid drug., 160, cm, 01/23/24 7:32:00 EDT, Height, 95, kg, 07/27/23 8:09:00 EDT, Dry Weight Start Date: 01/23/24 Status: Ordered Quantity: 30.0 Unit: capsule Repeat number: 1 EpiPen 2-Tarik 0.3 mg injectable kit = 0.3 mg, Intramuscular, Once, ONCE FOR ALLERGY REATION EMERGENCY may repeat if necessary, # 1 kit,2 Refills, Soft Stop, 03/27/19 9:27:00 AM EDT, [id number] Start Date: 03/27/19 Status: Ordered Quantity: 1.0 Unit: kit Repeat number: 3 Flonase 50 mcg/inh nasal spray 1 sprays, Nares, Both, Daily, # 16 Gm, 3 Refills, Maintenance, 09/22/21 10:37:00 AM EST, [facility] #[id number], 1 sprays Nares, Both Daily, 160, cm, 09/22/21 10:18:00 EST, Height, 105.64, kg, 07/28/21 9:39:00 EDT, Dry Weight Start Date: 09/22/21 Status: Ordered Quantity: 16.0 Unit: g Repeat number: 4 Heel cups, Left Heel cups, Left, See Instructions, # 2 each, Refills 0, Tot. Refills 0, Maintenance, Place heel cups in shoes and use daily., 08/21/22 1:21:00 PM EDT, Supply Start Date: 08/21/22 Status: Ordered Quantity: 2.0 Unit: each Repeat number: 1 levothyroxine 175 mcg (0.175 mg) oral tablet 1 tablet, By Mouth, Daily, # 90 tablet, 3 Refills, Maintenance, 01/23/24 7:48:00 AM EDT, [facility] #[id number], 160, cm, 01/23/24 7:32:00 EDT, Height, 95, kg, 07/27/23 8:09:00 EDT, Dry Weight Start Date: 01/23/24 Status: Ordered Quantity: 90.0 Unit: tablet Repeat number: 4 metFORMIN 500 mg oral tablet 1 tablet = 500 mg, By Mouth, 2 times a day, with meals, # 180 tablet, 1 Refills, Maintenance, 11/18/24 3:18:00 PM EST, Tablet, [facility] #[id number], Partial fill upon patient request if the prescription is for a schedule II opioid drug., 160, cm, 11/18/24 12:47:00 EST, Height, 107.4, kg, 11/18/24 12:47:00 EST, Dry Weight Start Date: 11/18/24 Stop Date: 05/17/25 Status: Ordered Quantity: 180.0 Unit: tablet Repeat number: 2 metFORMIN 500 mg oral tablet 1 tablet = 500 mg, By Mouth, 2 times a day, for 90 days, with meals, # 180 tablet, 0 Refills, Hard Stop 01/19/25 3:18:00 PM EDT, 10/21/24 3:18:00 PM EST, Tablet, [facility] #[id number], Partial fill upon patient request if the prescription is for a schedule II opioid drug., 160, cm, 08/14/24 17:46:00 EDT, Height, 107.8, kg, 08/14/24 17:39:00 EDT, Dry Weight Start Date: 10/21/24 Stop Date: 01/19/25 Status: Ordered Quantity: 180.0 Unit: tablet Repeat number: 1 omeprazole 20 mg oral enteric coated capsule 1 capsule, By Mouth, Daily, OV 08-21-22, # 90 capsule, 3 Refills, Maintenance, 01/23/24 8:09:00 AM EDT, [facility] #[id number], 160, cm, 01/23/24 7:32:00 EDT, Height, 95, kg, 07/27/23 8:09:00 EDT, Dry Weight Start Date: 01/23/24 Status: Ordered Quantity: 90.0 Unit: capsule Repeat number: 4 One Touch Ultra 2 Glucose Meter See Instructions, # 1 each, Refills 5, Tot. Refills 5, Maintenance, Check blood sugar daily Dx: E11.9, 08/21/22 11:12:00 AM EDT, Supply, 160, cm, 08/21/22 10:56:00 EDT, Height, 105.64, kg, 07/28/21 9:39:00 EDT, Dry Weight Start Date: 08/21/22 Stop Date: 02/17/23 Status: Ordered Quantity: 1.0 Unit: each Repeat number: 6 One Touch Ultra Test Strips See Instructions, # 200 each, Refills 5, Tot. Refills 5, Maintenance, Check blood sugar daily Dx: E11.9, 06/17/21 4:59:00 PM EDT, Supply, 160, cm, 06/17/21 15:02:00 EDT, Height Start Date: 06/17/21 Stop Date: 12/14/21 Status: Ordered Quantity: 200.0 Unit: each Repeat number: 6 One Touch UltraSoft Lancets See Instructions, # 200 each, Refills 5, Tot. Refills 5, Maintenance, Check blood sugar daily Dx: E11.9, 08/21/22 11:12:00 AM EDT, Supply, 160, cm, 08/21/22 10:56:00 EDT, Height, 105.64, kg, 219:39:00 EDT, Dry Weight Start Date: 08/21/22 Stop Date: 02/17/23 Status: Ordered Quantity: 200.0 Unit: each Repeat number: 6 Problem List Condition Confirmation Course Effective Dates Status Health Status Informant Acquired deviated nasal septum Confirmed Active Allergic rhinitis Confirmed Active Left ankle pain Confirmed Active Chronic pain of left ankle Confirmed Active Esophageal reflux Confirmed Active Hearing loss Confirmed Active Hypercholesterolemia Confirmed Active Hypermetropia Confirmed Active Tonsillar hypertrophy Confirmed Active Hypothyroidism Confirmed Active Myopia Confirmed Active Cigarette nicotine dependence Confirmed Active Class 2 obesity with body mass index (BMI) of 38.0 to 38.9 in adult Confirmed Active VICKI on CPAP Confirmed Active Postmenopausal bleeding Confirmed Active PMB (postmenopausal bleeding) Confirmed Active Presbyopia Confirmed Active Regular astigmatism Confirmed Active Severe obesity Confirmed Active Snoring Confirmed Active Type 2 diabetes mellitus with hypercholesterolemia Confirmed Active Social History Social History Type Response Smoking Status Former smoker, quit more than 30 days ago; Use: quit 02/25/24 entered on: 07/15/24 Sex Sex Representation Female (finding) Patient Care team information Care Team Personnel Name: Urszula Hernandez NP Position: S PCO Associate Professional Member Role: PCP Address: [address] [place], [place] [address], [place] [address] Telecom: Care Team Related Persons Name: TYRA ISAACS Insurance Providers Guarantor name: MAIA ISAACS Health Plan Information #: 1 Payer: [employer] Member Number: [id number] Policy Number: NA Group Number: [id number] Health Plan Information #: 2 Payer: [employer] [facility] [employer] Member Number: [id number] Policy Number: NA Group Number: [id number]
--- OUTSIDE RECORDS SUMMARY | 2025-01-06 08:29 | XMS_ITS | Clinical Summary ---
Author Organization [facility] ity Address [address] [place] [phone] Care Team Providers Care Shoe Clerk Name Role Phone Lory Escobar MD Primary Care Provider Surgical History Surgery Date Site/Laterality Comments TONSILLECTOMY ADENOIDECTOMY, BILATERAL MYRINGOTOMY AND TUBES PROCEDURE: [place] TONSILLECTOMY & ADENOIDECTOMY <AGE 13 Social History Tobacco Use Types Packs/Day Years Used Date Smoking Tobacco: Every Day Alcohol Use Standard Drinks/Week Comments Yes 0 (1 standard drink = 0.6 oz pur e alcohol) Comments Unknown Sex and Gender Information Value Date Recorded Sex Assigned at Not on file Legal Sex Female 3:40 PM EST Gender Identity Not on file Sexual Orientation Not on file Obstetrics History Plan of Treatment Health Maintenance Due Date Last Done Comments Breast Cancer Screening 1971 DTaP,Tdap,and Td Vaccines (1 - Tdap) 1990 Hepatitis B Vaccines (1 of 3 - 19+ 3-dose series) 1990 Cervical Cancer Screening: P ap Smear 1992 Pneumococcal Vaccine: 50+ Ye ars (1 of 1 - PCV) 2021 Zoster Vaccines (1 of 2) 2021 COVID-19 Vaccine ( - 2023-2 5 season) 2024 Influenza Vaccine (#1) 2024 HIB Vaccines Aged Out No longer eligi ble based on patient's age to complete this topic HPV Vaccines Aged Out No longer eligi ble based on patient's age to complete this topic Hepatitis A Vaccines Aged Out No long er eligible based on patient's age to complete this topic IPV Vaccines Aged Out No longer eligi ble based on patient's age to complete this topic MMR Vaccines Aged Out No longer eligi ble based on patient's age to complete this topic Meningococcal ACWY Vaccine Aged Out N o longer eligible based on patient's age to complete this topic Meningococcal B Vacine Aged Out No lo nger eligible based on patient's age to complete this topic Pneumococcal Vaccine: Pediat rics (0 to 5 Years) and At-Risk Patients (6 to 64 Years) Aged Out No longer eligible b ased on patient's age to complete this topic RSV Immunization Patients Un katharine 20 months Aged Out No longer eligible b ased on patient's age to complete this topic Varicella Vaccines Aged Out No longer eligible based on patient's age to complete this topic Care Teams Shoe Clerk Relationship Specialty Start Date End Date Lory Escobar MD [address] [place] [phone] PCP - General Internal Medicine 10/08/20
== END 2025-01-06 08:32 | disposition home or self-care (01) ==
LOC: HO.HCS 08:11
PROVIDERS: PCP Nurse Practitioner Adult Health; Visit Provider Internal Medicine
DX: R07.2 Precordial pain (principal); Z87.891 Personal history of nicotine dependence; E66.01 Morbid (severe) obesity due to excess calories
CPT/HCPCS: 93010; 99213

== ENCOUNTER → 2025-01-06 08:11 | Outpatient (BNVA) | payer OTHER, SELFPAY | PROVIDERS: PCP Nurse Practitioner Adult Health; Visit Provider Internal Medicine | DX: E66.01 Morbid (severe) obesity due to excess calories (principal); Z87.891 Personal history of nicotine dependence; Z68.41 Body mass index [BMI] 40.0-44.9, adult | CPT/HCPCS: 93005; 99212 ==

== ENCOUNTER 2025-06-18 11:50 | Outpatient (AMB) | payer OTHER, SELFPAY ==
--- NOTE | 2025-06-18 11:51 | MHC.OFFVIS ---
Intake Visit Reasons: 1 year follow up Allergies No Known Allergies Allergy (Verified 06/18/25 11:51) HPI Comments Details: 52 y.o F with PMH who was referred here for abnormal imaging finding. 09/05/23: Pt reports that has been getting cardiac work up done through [facility] for chest pain and pressure which also included a CTA of coronary arteries performed on 07/27/23 that showed clear coronaries but did incidentally cone picker mild distal thickening of the esophagus. Pt does report baseline heartburn sx that have been ongoing on and off for 10 years. Has been treated with intermittent PPIs. Had not needed to take it for almost 6 months since was asymptomatic but when she was told about the esophagitis she resumed it at the dose of 40mg x 2 weeks and now on 20mg once daily. At present, does not report any heartburn, N,V, regurgitation. Smokes 0.5 PPD, etOH use 2-3 times a month. Occ NSAID use PRN for migraines. Up to date on colonoscopy - April 2023 ([facility] Hyperplastic polyp. 09/12/23: EGD (Dr Elmore) ESOPHAGUS: Mild LA Grade A esophagitis with a few superficial 5 mm healing erosions at the GE junction. No Arzola's. Remaining esophageal mucosa appeared normal STOMACH: Mild antral gastritis and a few 5 to 10 mm benign appearing nodules in the antrum with central erosions - biopsied. DUODENUM: Normal Path: Diagnosis A. Stomach, antrum, biopsy: Antral-type mucosa with moderate chronic inactive inflammation; no Helicobacter organisms seen. B. Stomach, antral nodule, biopsy: Antral-type mucosa with mild chronic inactive inflammation and intestinal metaplasia; negative for dysplasia; no Helicobacter organisms seen. 12/03/23: Here for post-procedure follow up. Has been doing well on omeprazole PO but still taking 40mg since Sep. Continues to smoke at least half a pack a day. Occ etOH use. 06/16/24: Here for follow up. Quit smoking 02/24! No acute GI issues. Had cut back on omeprazole to 20 with continued control of sx. 06/18/25: Here for a yearly follow up. Has been doing pretty well. No further chest pain or heartburn. Cont on omeprazole 20 daily. Weight has increased back to 140 lbs. No recent LFts in system. [facility] Medical History Smoker Dyslipidemia Type 2 diabetes mellitus with unspecified complications Surgical History History of esophagogastroduodenoscopy (EGD) History of oral surgery Hx of colonoscopy Family History Father No problems noted. Mother No problems noted. Brother Myocardial infarction Social History Alcohol intake: current Alcohol intake frequency: holidays/special occasions only Patient Tobacco Use Status: Former Tobacco user Tobacco use type: Cigarette Cigarette Packs Per Day: 0.5 Cigarettes Per Day: 10.0 Review of Systems Const All systems reviewed & are unremarkable except as noted in HPI and below Physical Exam Exam Exam: Video visit: No acute distress No icterus noted No facial asymmetry Speaking in full sentences Telehealth Telehealth Telehealth Platform: Ketsu Location of provider rendering services: practice address Location of patient: address on file Patient Identification confirmed using: Name, : Yes Telehealth method: video Patient verbally consented to treatment: Yes Patient verbally consented to billing insurance company: Yes Minutes spent on Phone/Video with Pt.: 13 Assessment & Plan Assessment & Plan (1) GERD with esophagitis: Code(s): K21.00 - Gastro-esophageal reflux disease with esophagitis, without bleeding Category: Medical (2) Obesity (BMI 35.0-39.9 without comorbidity): Code(s): E66.9 - Obesity, unspecified Category: Medical (3) Type 2 diabetes mellitus with unspecified complications: Code(s): E11.8 - Type 2 diabetes mellitus with unspecified complications Category: Medical Plan Reviewed wiht the pt that will likely need lifelong PPI due to known GERD with esophagitis however can reduce dose to lowest effective dose. Plan: - Reduce omeprazole to 10mg PO once daily - Avoid large meals or laying down <3 hours after a meal - Weight loss may help with acid reflux. Pt would like to hold off the bariatric med referral for now. Screen for MAFLD Has risk factors including obesity, T2DM. Will check LFTs and if up, proceed with US. CRC screening Last colo 2022 with hyperplastic polyp. next colo due 2032. Follow up in 1 year Orders: Orders Complete Blood Count no Diff Today E11.8 - Type 2 diabetes mellitus with unspecified complications, E66.9 - Obesity, unspecified Comprehensive Met. Panel Today E11.8 - Type 2 diabetes mellitus with unspecified complications, E66.9 - Obesity, unspecified Prothrombin Time INR Today E11.8 - Type 2 diabetes mellitus with unspecified complications, E66.9 - Obesity, unspecified Medications: New omeprazole 10 mg PO DAILY 30 caps 0RF Coding Level of Care Code Tele Est Pt Level 4 (30033) Diagnoses GERD with esophagitis K21.00 Obesity (BMI 35.0-39.9 without comorbidity) E66.9 Type 2 diabetes mellitus with unspecified complications E11.8
--- OUTSIDE RECORDS SUMMARY | 2025-06-18 12:54 | XMS_ITS | Clinical Summary ---
Author Organization 175 [facility] Address [address] [place] [address] Phone Care Team Providers Care Repair Armature Winder Helper Name Role Phone Lory Escobar MD Primary Care Provider Allergies No known active allergies Medications silver sulfADIAZINE (Silvadene) 1 % cream Apply topically 1 (one) time each day. 50 g 5 05/18/20 26 Active cephalexin (KEFLEX) 500 mg capsule Take 1 capsule (500 mg total) by mouth 3 (three) times a day for 10 days. 30 each 5 05/28/20 25 Encounters Date Type Department Care Team Description 06/04/2025 3:30 PM EDT Office Visit Orthopedic [address] [phone] Robb Dickens DPM Acquired hallux valgus of right foot (Primary Dx); Cellulitis of right foot; Ingrowing nail; Acquired hallux valgus of left foot 05/18/2025 3:15 PM EDT Office Visit Orthopedic [facility] [address] [phone] Robb Dickens DPM Cellulitis of right foot (Primary Dx); Ingrowing nail 04/13/2025 9:45 AM EDT Office Visit [facility] [address] [phone] Robb Dickens DPM Ingrowing nail (Primary Dx) from Last 3 Months Surgical History Surgery Date Site/Laterality Comments TONSILLECTOMY ADENOIDECTOMY, BILATERAL MYRINGOTOMY AND TUBES PROCEDURE: [place] TONSILLECTOMY & ADENOIDECTOMY <AGE 13 Social History [...] Sexual Orientation Not on file Obstetrics History Last Filed Vital Signs Vital Sign Reading Time Taken Comments Blood Pressure - - Pulse - - Temperature - - Respiratory Rate - - Oxygen Saturation - - Inhaled Oxygen Concentration - - Weight 102 kg (225 lb) 06/04/2025 3:40 PM EDT Height 157.5 cm (5' 2.01 ) 06/04/2025 3:40 PM ED T Body Mass Index 41.14 06/04/2025 3:40 PM EDT Plan of Treatment Upcoming Encounters Date Type Department Care Team (Late st Contact Info) Description 07/08/2025 4:00 PM EDT Office Visit Orthopedic Surgery - [place] [address] [phone] Robb Dickens, DPM [address] [address] Health Maintenance Due Date Last Done Comments Breast Cancer Screening 1971 Diabetes: Annual GFR (Glomerular Filtration Rate) 1971 Diabetes: Annual Foot Exam 1981 Diabetes: Annual Retina Eye Exam 1981 Hepatitis B Vaccines (1 of 3 - 19+ 3-dose series) 1990 Pneumococcal Vaccine: 50+ Years (1 of 2 - PCV) 1990 Cervical Cancer Screening: Pap Smear 1992 COVID-19 Vaccine ( season) 2024 11/16/2021, 03/24/2021, 03/03/2021 Depression Screening 11/05/2024 Cholesterol Screening (Lipid Panel) 03/03/2025 Colorectal Cancer Screening: Colonoscopy 03/03/2025 HIV Screening 03/03/2025 Hepatitis C Screening 03/03/2025 Social Influencers of Health Screening 03/03/2025 Diabetes: Annual Urine Albumin-Creatinine Ratio (uACR) 03/04/2025 Diabetes: Blood Sugar Control Test (HGBA1C) 03/04/2025 Influenza Vaccine (#1) 2025 , 09/22/2021, 12/10/2018, Additional history exists DTaP,Tdap,and Td Vaccines (3 - Td or Tdap) 08/14/2034 08/14/2024, 04/17/2013 Zoster Vaccines Completed 11/01/2024, 08/21/2024 HIB Vaccines Aged Out No longer eligi [...] age to complete this topic Meningococcal B Vaccine Aged Out No l onger eligible based on patient's age to complete this topic RSV Immunization Patients Under 20 months Aged Out No longer eligible based on patient's age to complete this topic Varicella Vaccines Aged Out No longer eligible based on patient's age to complete this topic Insurance [facility] MEDICAID ADVANTAGE Care Teams Repair Armature Winder Helper Relationship Specialty Start Date End Date Lory Escobar MD [address] [place] [phone] PCP - General Internal Medicine 10/08/20
== END 2025-06-18 12:53 | disposition home or self-care (01) ==
LOC: HO.HGI 11:50
PROVIDERS: PCP Nurse Practitioner Adult Health; Visit Provider Internal Medicine
DX: K21.00 Gastro-esophageal reflux disease with esophagitis, without bleeding (principal); E66.9 Obesity, unspecified; E11.8 Type 2 diabetes mellitus with unspecified complications
CPT/HCPCS: 99214

== ENCOUNTER 2025-06-23 08:13 | Outpatient (REF) | payer OTHER, SELFPAY ==
--- OUTSIDE RECORDS SUMMARY | 2025-06-23 08:50 | XMS_ITS | Clinical Summary ---
Author Organization 175 [facility] Address [address] [place] [address] Phone Care Team Providers Care Manager Retail Name Role Phone Lory Escobar MD Primary Care Provider [phone] Allergies No known active allergies Medications silver [...] 06/04/2025 3:30 PM EDT Office Visit Orthopedic [address] [phone] Robb Dickens DPM Acquired hallux valgus of right foot (Primary Dx); Cellulitis of right foot; Ingrowing nail; Acquired hallux valgus of left foot 05/18/2025 3:15 PM EDT Office Visit [facility] [address] [phone] Robb Dickens DPM Cellulitis of right foot (Primary Dx); Ingrowing nail 04/13/2025 9:45 AM EDT Office Visit [facility] [address] [phone] Robb Dickens DPM Ingrowing nail (Primary Dx) from Last 3 Months Surgical History Surgery Date Site/Laterality Comments TONSILLECTOMY ADENOIDECTOMY, BILATERAL MYRINGOTOMY AND TUBES PROCEDURE: [place] TONSILLECTOMY & ADENOIDECTOMY <AGE 13 Social History [...] PM EDT Office Visit Orthopedic Surgery - [place] [address] [phone] Robb Dickens, DPM [address] [address] Health Maintenance Due Date Last Done Comments [...] patient's age to complete this topic Insurance [facility] MEDICAID ADVANTAGE Care Teams Manager Retail Relationship Specialty Start Date End Date Lory Escobar MD [address] [place] [phone] PCP - General Internal Medicine 10/08/20
[2025-06-23 08:51] LABS: Hematocrit 37.5 % (37.0-47.0); Hemoglobin 12.3 g/dl (12.0-16.0); Mean Corpuscular HGB Conc 32.8 g/dl (31.0-35.0); Mean Corpuscular Hemoglobin 29.6 pg (27.0-33.0); Mean Corpuscular Volume 90.4 fL (80.0-98.0); NRBC Abs Auto 0.000 X10*3/uL (0.0-0.012); NRBC Pct Auto 0.0 /100WBC (0.0-0.2); Platelet Count 340 X10*3/uL (160-400); Red Blood Count 4.15 X10*6/uL (4.20-5.50); White Blood Count 10.0 X10*3/uL (4.8-10.8)
[2025-06-23 08:56] LABS: INTERNATIONAL NORM RATIO 0.9 (0.9-1.1); Prothrombin Time 9.9 SEC (10.9-12.4)
[2025-06-23 09:36] LABS: Alanine Aminotransferase 31 U/L (0-31); Albumin Level 4.5 g/dL (3.5-5.0); Alkaline Phosphatase 80 U/L (39-117); Anion Gap 13 (12-20); Aspartate Amino Transferase 21 U/L (5-31); Blood Urea Nitrogen 17 mg/dL (9-16); Calcium 9.7 mg/dL (8.4-10.2); Carbon Dioxide 25 mmol/L (22-29); Chloride 107 mmol/L (96-108); Estimated Glomerular Filt Rate > 60; Potassium 4.4 mmol/L (3.3-5.1); Sodium 141 mmol/L (135-145); Total Protein 7.4 g/dL (6.5-8.0)
== END 2025-06-23 08:14 | disposition home or self-care (01) ==
LOC: HO.LAB 08:13
PROVIDERS: PCP Nurse Practitioner Adult Health; Visit Provider Internal Medicine
DX: E11.8 Type 2 diabetes mellitus with unspecified complications (principal); E66.9 Obesity, unspecified
CPT/HCPCS: 36415; 80053; 85027; 85610